=== PATIENT | male | born 1990 | race Caucasian/White ===

== ENCOUNTER 2018-11-27 04:19 | Emergency (ER) | payer SELFPAY ==
[~2018-11-27] VITALS: Wt 72.9 kg
[~2018-11-27 04:19] MED LIST: TRAM50TA2 PO
[2018-11-27] MEDS ORDERED: SOD CHLORIDE 0.9% 1,000 ML IV STA (06:19)
[2018-11-27 07:37] VITALS: BP 127/72; PULSE 85; RESP 20
--- NOTE | 2018-11-27 08:42 | ERD ---
ER Documentation Chief Complaint Chief Complaint bethany leg cramps x 2 hrs. states he did meth 6pm last night HPI 28 yr old male complaining of leg cramping x 1 week patient denies any fevers. Denies any leg swelling. Denies chest pain or shortness of breath. He states that the cramping occurs spontaneously and resolves on its own. Patient does use meth and cocaine. Last use of methamphetamine was last night. Denies other medical problems. NKDA. Surgical history denies. Social history denies ROS All systems reviewed and are negative except as per history of present illness. Medications Home Meds Active Scripts Tramadol HCl (Tramadol HCl) 50 Mg Tablet, 50 MG PO Q6H PRN for PAIN, #30 TAB Prov:KAITLYN JASMINE MD 11/05/15 Allergies Allergies: Coded Allergies: No Known Drug Allergy (Verified Allergy, Mild, 11/04/15) PMhx/Soc History of Surgery: No Anesthesia Reaction: No Hx Neurological Disorder: No Hx Respiratory Disorders: No Hx Cardiac Disorders: No Hx Psychiatric Problems: No Hx Miscellaneous Medical Probl: No Hx Alcohol Use: Yes (occassional) Hx Substance Use: Yes (meth) Hx Tobacco Use: Yes Smoking Status: Current some day smoker FmHx Family History: No diabetes, No coronary disease, No other Physical Exam Vitals Vital Signs Date Temp Pulse Resp B/P (MAP) Pulse Ox O2 O2 Flow FiO2 Time Delivery Rate 11/27/18 98.0 85 20 127/72 100 Room Air 07:37 (90) 11/27/18 98.0 94 20 132/76 100 04:28 (94) Physical Exam GENERAL: The patient is well-appearing, well-nourished, in no acute distress CHEST: Clear to auscultation bilaterally. There are no rales, wheezes or rhonchi. HEART: Regular rate and rhythm. No murmurs, clicks, rubs or gallops. No S3 or S4. EXTREMITIES: Equal pulses bilaterally. There is no peripheral clubbing, cyanosis or edema. No focal swelling or erythema. Full range of motion. Grossly neurovascularly intact. NEUROLOGIC: Alert and oriented. Cranial nerves II through XII intact. Motor strength in all 4 extremities with 5 out of 5 strength. Sensation grossly intact. SKIN: There is no apparent rash or petechiae. The skin is warm and dry. Result Diagram: 11/27/18 0644 11/27/18 0644 Results 24 hrs Laboratory Tests Test 11/27/18 06:44 White Blood Count 11.8 10^3/ul Red Blood Count 4.67 10^6/ul Hemoglobin 14.5 g/dl Hematocrit 42.8 % Mean Corpuscular Volume 91.6 fl Mean Corpuscular Hemoglobin 31.0 pg Mean Corpuscular Hemoglobin Concent 33.9 g/dl Red Cell Distribution Width 12.8 % Platelet Count 245 10^3/UL Mean Platelet Volume 10.6 fl Immature Granulocytes % 0.300 % Neutrophils % 82.0 % Lymphocytes % 9.0 % Monocytes % 8.1 % Eosinophils % 0.3 % Basophils % 0.3 % Nucleated Red Blood Cells % 0.0 /100WBC Immature Granulocytes # 0.030 10^3/ul Neutrophils # 9.6 10^3/ul Lymphocytes # 1.1 10^3/ul Monocytes # 1.0 10^3/ul Eosinophils # 0.0 10^3/ul Basophils # 0.0 10^3/ul Nucleated Red Blood Cells # 0.0 10^3/ul Sodium Level 139 mmol/L Potassium Level 4.8 mmol/L Chloride Level 103 mmol/L Carbon Dioxide Level 28 mmol/L Anion Gap 8 Blood Urea Nitrogen 38 mg/dl Creatinine 1.06 mg/dl Est Glomerular Filtrat Rate mL/min > 60 mL/min Glucose Level 92 mg/dl Calcium Level 9.9 mg/dl Total Bilirubin 0.6 mg/dl Direct Bilirubin 0.00 mg/dl Indirect Bilirubin 0.6 mg/dl Aspartate Amino Transf (AST/SGOT) 30 IU/L Alanine Aminotransferase (ALT/SGPT) 10 IU/L Alkaline Phosphatase 85 IU/L Total Protein 8.5 g/dl Albumin 4.8 g/dl Globulin 3.70 g/dl Albumin/Globulin Ratio 1.29 Current Medications Medications Dose Sig/Diana Start Time Status Last (Trade) Ordered Route PRN Stop Time Admin Dose Reason Admin Sodium 1,000 ml @ Q1H STAT 11/27/18 DC 11/27/18 Chloride 1,000 mls/hr IV 06:19 11/27/18 06:46 07:18 Procedures/MDM ER course: 1 L normal saline given ED. MDM: 20-year-old male presenting with leg cramping. Patient's exam is non- concerning. Patient's vitals are stable. Patient is told symptoms change or worsen to return the ER. I will suspicion for vascular insufficiency as there is no swelling or calf tenderness on exam. Patient's potassium and other electrolytes are stable. Patient is recommended to follow up with primary doctor in 1-2 days. All questions answered at discharge Departure Diagnosis: Primary Impression: Leg cramp Condition: Stable Patient Instructions: Muscle Spasm Referrals: [facility] YOU HAVE RECEIVED A MEDICAL SCREENING EXAM AND THE RESULTS INDICATE THAT YOU DO NOT HAVE A CONDITION THAT REQUIRES URGENT TREATMENT IN THE EMERGENCY DEPARTMENT. FURTHER EVALUATION AND TREATMENT OF YOUR CONDITION CAN WAIT UNTIL YOU ARE SEEN IN YOUR DOCTORS OFFICE WITHIN THE NEXT 1-2 DAYS. IT IS YOUR RESPONSIBILITY TO MAKE AN APPOINTMENT FOR FOLOW-UP CARE. IF YOU HAVE A PRIMARY DOCTOR --you should call your primary doctor and schedule an appointment IF YOU DO NOT HAVE A PRIMARY DOCTOR YOU CAN CALL OUR PHYSICIAN REFERRAL HOTLINE AT IF YOU CAN NOT AFFORD TO SEE A PHYSICIAN YOU CAN CHOSE FROM THE FOLLOWING [facility] [address] [facility] [address] [facility] [address] [facility] [address] [facility] [address] [facility]. [address] Additional Instructions: FOLLOW UP WITH YOUR PRIMARY CARE PHYSICIAN TOMORROW.Return to this facility if you are not improving as expected. OLAYINKA BEGUM PA-C Nov 27, 2018 08:42
== END 2018-11-27 07:40 | disposition home or self-care (01) ==
LOC: FTE 04:19
DX: R25.2 Cramp and spasm (principal); F17.210 Nicotine dependence, cigarettes, uncomplicated
CPT/HCPCS: 36415; 80053; 85025; 96360; 99284; J7030